=== PATIENT | female | born 2000 | race Asian ===

== ENCOUNTER 2021-11-28 21:40 | Emergency (ER) | payer OTHER ==
[~2021-11-28] VITALS: Ht 160 cm; Wt 59.0 kg
[2021-11-28 22:00] VITALS: BP 145/93
== END 2021-11-28 22:40 | disposition home or self-care (01) ==
LOC: ER 21:40
DX: T78.8XXA Other adverse effects, not elsewhere classified, initial encounter (principal); F12.10 Cannabis abuse, uncomplicated; X58.XXXA Exposure to other specified factors, initial encounter
CPT/HCPCS: 99281